=== PATIENT | male | born 1985 | race Caucasian/White ===

== ENCOUNTER 2021-08-28 16:52 | Emergency (ER) | payer MEDICARE, SELFPAY ==
--- NOTE | 2021-08-28 17:32 | ED_ITS ---
HPI - Psych General Chief Complaint: Psychiatric Symptoms Stated Complaint: CRISIS Time Seen by Provider: 08/28/21 17:31 Source: patient Mode of arrival: EMS Limitations: no limitations History of Present Illness HPI Narrative: Someone called 911 for possible suicidal ideation. Currenlty on cocaine, alcohol and marijuana. Patient states he and his are having problems. Patient is 4 years. Patient has been struggling with substances since May. Patient denies suicidal or homicidal ideation. Patient snorted cocaine today. complaint: feels depressed Onset (ago): week(s) Duration: constant Context: recent alcohol abuse and recent drug abuse Associated psychiatric symptoms: depression Associated symptoms: denies other symptoms Related Data Home Medications Medication Instructions Recorded Confirmed alprazolam 0.5 mg tablet 1 tab PO BID PRN 08/28/21 08/28/21 bupropion HCl 150 mg 24 hr tablet, 450 mg PO DAILY 08/28/21 08/28/21 extended release clonidine HCl 0.2 mg tablet 0.2 mg PO TID 08/28/21 08/28/21 oxcarbazepine 300 mg tablet 600 tab PO BEDTIME 08/28/21 08/28/21 vortioxetine 10 mg tablet 1 tab PO QAM 08/28/21 08/28/21 (Trintellix) Allergies Allergy/AdvReac Type Severity Reaction Status Date / Time No Known Allergies Allergy Unverified 08/02/20 16:17 [No Known Allergies*] Review of Systems Constitutional: Constitutional: Reports no additional constitutional complaints Eyes: Eyes: Reports no additional eye complaints ENT: Denies dizziness Cardiovascular: Cardiovascular: Reports no additional cardiovascular complaints Respiratory: Respiratory: Reports as per HPI Gastrointestinal: Gastrointestinal: Reports no additional gastrointestinal complaints Musculoskeletal: Musculoskeletal: Reports no additional musculoskeletal complaints Integumentary/Breasts: Skin/Breast: Denies rash Neurologic: Reports system reviewed and no additional complaints, except as documented, Denies dizziness and Denies Sensory deficit (Neuro) Psychiatric: Psychiatric: Denies anxiety PMFSH Past Medical History Medical History (Updated 08/28/21 @ 20:56 by Alex Agarwal MD) Depression, major, severe recurrence Social History Social History Advance Directives: No Advance Directives Information Provided: Yes Physical Exam Vital Signs: Vital Signs: Last Vital Signs Temp 97.8 F 08/28/21 17:52 Pulse 81 08/28/21 17:52 Resp 16 08/28/21 17:52 BP 156/93 H 08/28/21 17:52 Pulse Ox 95 08/28/21 17:52 Body Mass Index 27.8 Const: Other: Anxious and tearful General: healthy appearing Nutritional Appearance: average body habitus Orientation/consciousness: oriented to person and patient oriented x3 Limitations: no limitations HENMT: Head: Yes normal to inspection Ears: external ears normal General nose exam: Normal external nose present Mouth: Normal oral and palatal mucosa present and oropharynx normal Throat: Yes posterior oropharynx normal Eyes: General: appearance normal, both eyes and all related structures Neck: Other: supple Neck: Yes normal visual inspection Chest: Chest palpation & inspection: normal inspection of the chest Resp: Auscultation: clear to auscultation bilaterally Cardio: Jugular venous distension: no JVD Rate: regular rate Rhythm: regular rhythm Heart sounds: S1 normal heart sound present and S2 normal heart sound present GI: Inspection: Yes normal to inspection Palpation (GI): Soft to palpation, nontender and No hepatosplenomegaly present Auscultation: normal bowel sounds : General: Yes no CVA tenderness Back/Spine/Pelvis: Back: no CVA tenderness Skin: General skin exam: no rashes or lesions noted Neuro: General: oriented to person and patient oriented x3 Cranial nerves: Yes CN's II-XII intact bilaterally Motor exam (neuro): 5/5 motor strength present throughout Sensory Exam: No Sensory deficit (Neuro) Extrem: General: Yes normal to inspection Psych: Other: anxious and tearful Course Reevaluation(s) Reevaluation #1: seen by crisis who discussed with his and therapist. Patient mostly feeling guilty over starting drugs again. no concern over suicidal or homicidal ideation. will dc home Time: 20:54 MDM - Psych Lab Data Result diagrams: 08/28/21 18:37 08/28/21 18:37 Labs: Lab Results 08/28/21 08/28/21 08/28/21 Range/Units 18:37 18:37 18:37 WBC 15.5 H (4.8-10.8) X10*3/uL RBC 4.78 (4.60-5.80) X10*6/uL Hgb 15.6 (14.0-18.0) g/dl Hct 45.3 (42-52) % MCV 94.8 (80-98) fL MCH 32.6 (27.0-33.0) pg MCHC 34.4 (31.0-36.0) g/dl RDW 12.1 (11.0-16.0) % Plt Count 300 (160-400) X10*3/uL MPV 9.0 L (9.4-12.4) fL Immature Gran % (Auto) 0.5 H (0.0-0.4) % Neut % (Auto) 89.6 H (45-73) % Lymph % (Auto) 5.0 L (20-40) % [place] % (Auto) 4.5 (2-11) % Eos % (Auto) 0.1 (0-4) % Baso % (Auto) 0.3 (0-2) % Lymph # (Auto) 0.8 L (1.2-4.9) X10*3/uL [place] # (Auto) 0.7 (0.1-1.2) X10*3/uL Eos # (Auto) 0.0 (0.0-0.4) X10*3/uL Baso # (Auto) 0.1 (0.0-0.2) X10*3/uL Abs Immat Gran (auto) 0.07 H (0.00-0.03) X10*3/uL Absolute Neuts (auto) 13.9 H (2.0-8.3) X10*3/uL Absolute Nucleated RBC 0.000 (0.0-0.012) X10*3/uL Nucleated RBC % (auto) 0.0 (0.0-0.2) /100WBC Sodium 142 (135-145) mmol/L Potassium 4.7 (3.3-5.1) mmol/L Chloride 109 H (96-108) mmol/L Carbon Dioxide 26 (22-29) mmol/L Anion Gap 12 (12-20) BUN 15 (9-16) mg/dL Creatinine 1.16 (0.5-1.4) mg/dL Estim Creat Clear Calc 96.4 Estimated GFR > 60 Random Glucose 108 (60-115) mg/dL Calcium 9.0 (8.4-10.2) mg/dL Total Bilirubin 0.2 (0.0-1.0) mg/dL AST 43 H (5-37) U/L ALT 53 H (0-40) U/L Alkaline Phosphatase 94 (39-117) U/L Total Protein 7.3 (6.5-8.0) g/dL Albumin 4.8 (3.5-5.0) g/dL Salicylates < 5.0 L (15-30) mg/dL Urine Opiates Screen (Not Detect) Urine Fentanyl Screen (Not Detect) Acetaminophen < 1 (<30) mcg/mL Ur Barbiturates Screen (Not Detect) Ur Phencyclidine Scrn (Not Detect) Ur Amphetamines Screen (Not Detect) U Benzodiazepines Scrn (Not Detect) Urine Cocaine Screen (Not Detect) U Marijuana (THC) Screen (Not Detect) Ethyl Alcohol 22 mg/dL COVID-19 ([facility]) (Negative) COVID-19 Clin Com 08/28/21 08/28/21 Range/Units 18:42 18:42 WBC (4.8-10.8) X10*3/uL RBC (4.60-5.80) X10*6/uL Hgb (14.0-18.0) g/dl Hct (42-52) % MCV (80-98) fL MCH (27.0-33.0) pg MCHC (31.0-36.0) g/dl RDW (11.0-16.0) % Plt Count (160-400) X10*3/uL MPV (9.4-12.4) fL Immature Gran % (Auto) (0.0-0.4) % Neut % (Auto) (45-73) % Lymph % (Auto) (20-40) % [place] % (Auto) (2-11) % Eos % (Auto) (0-4) % Baso % (Auto) (0-2) % Lymph # (Auto) (1.2-4.9) X10*3/uL [place] # (Auto) (0.1-1.2) X10*3/uL Eos # (Auto) (0.0-0.4) X10*3/uL Baso # (Auto) (0.0-0.2) X10*3/uL Abs Immat Gran (auto) (0.00-0.03) X10*3/uL Absolute Neuts (auto) (2.0-8.3) X10*3/uL Absolute Nucleated RBC (0.0-0.012) X10*3/uL Nucleated RBC % (auto) (0.0-0.2) /100WBC Sodium (135-145) mmol/L Potassium (3.3-5.1) mmol/L Chloride (96-108) mmol/L Carbon Dioxide (22-29) mmol/L Anion Gap (12-20) BUN (9-16) mg/dL Creatinine (0.5-1.4) mg/dL Estim Creat Clear Calc Estimated GFR Random Glucose (60-115) mg/dL Calcium (8.4-10.2) mg/dL Total Bilirubin (0.0-1.0) mg/dL AST (5-37) U/L ALT (0-40) U/L Alkaline Phosphatase (39-117) U/L Total Protein (6.5-8.0) g/dL Albumin (3.5-5.0) g/dL Salicylates (15-30) mg/dL Urine Opiates Screen Not Detected (Not Detect) Urine Fentanyl Screen POSITIVE H (Not Detect) Acetaminophen (<30) mcg/mL Ur Barbiturates Screen Not Detected (Not Detect) Ur Phencyclidine Scrn Not Detected (Not Detect) Ur Amphetamines Screen Not Detected (Not Detect) U Benzodiazepines Scrn POSITIVE H (Not Detect) Urine Cocaine Screen POSITIVE H (Not Detect) U Marijuana (THC) Screen POSITIVE H (Not Detect) Ethyl Alcohol mg/dL COVID-19 ([facility]) Negative (Negative) COVID-19 Clin Com See Note Discharge Plan Discharge Clinical Impression: Drug abuse Patient Disposition: Home, Self-Care Instructions: Polysubstance Abuse (ED) Prescriptions: No Action oxcarbazepine 300 mg tablet 600 tab PO BEDTIME RF: 0 alprazolam 0.5 mg tablet 1 tab PO BID PRN (Reason: Anxiety) RF: 0 clonidine HCl 0.2 mg tablet 0.2 mg PO TID RF: 0 bupropion HCl 150 mg tablet extended release 24 hr 450 mg PO DAILY RF: 0 Trintellix 10 mg tablet 1 tab PO QAM RF: 0 Referrals: Yesi Martinez NP [Primary Care Provider] - 5 days
[2021-08-28 17:52] VITALS: BP 151/100; BP 156/93; PULSE 81; PULSE 90; RESP 16; TEMP 36.6; O2SAT 95; BMI 27.8
--- NOTE | 2021-08-28 18:00 | MHC.RECOVSUP ---
Recovery Support note: Patient is a 36 year old Polish speaking male who presented to [facility] via EMS. This typewriter operator automatic met with patient after he requested to talk to someone. Patient reports his last drink was four days ago and that he had several months of sobriety prior to his relapse. Patient had difficulty expressing what he was feeling and what was going on. Patient reports he has not slept well is several months. This typewriter operator automatic explained the crisis process to patient and what to expect. Patient expressed interest in meeting with a Tobacco Conditioner while he was here and this typewriter operator automatic introduced him to [facility]. Encouraged patient to reach out to staff if he needs anything. Discussed case with patient's RN.
[2021-08-28 18:44] LABS: MANUAL DIFF FLAG NO
[2021-08-28 18:46] LABS: Basophils Absolute Auto 0.1 X10*3/uL (0.0-0.2); Basophils Percent Auto 0.3 % (0-2); Eosinophils Percent Auto 0.1 % (0-4); Hematocrit 45.3 % (42-52); Hemoglobin 15.6 g/dl (14.0-18.0); Imm Gran Abs Auto 0.07 X10*3/uL (0.00-0.03); Imm Gran Pct Auto 0.5 % (0.0-0.4); Lymphocytes Absolute Auto 0.8 X10*3/uL (1.2-4.9); Mean Corpuscular HGB Conc 34.4 g/dl (31.0-36.0); Mean Corpuscular Hemoglobin 32.6 pg (27.0-33.0); Mean Corpuscular Volume 94.8 fL (80-98); Monocytes Absolute Auto 0.7 X10*3/uL (0.1-1.2); Monocytes Percent Auto 4.5 % (2-11); Neutrophils Absolute Auto 13.9 X10*3/uL (2.0-8.3); Neutrophils Percent Auto 89.6 % (45-73); Platelet Count 300 X10*3/uL (160-400); Red Blood Count 4.78 X10*6/uL (4.60-5.80); Red Cell Distribution Width 12.1 % (11.0-16.0); White Blood Count 15.5 X10*3/uL (4.8-10.8)
[2021-08-28 19:02] LABS: Ethanol 22 mg/dL
[2021-08-28 19:06] LABS: Acetaminophen LAB < 1 mcg/mL (<30); Alanine Aminotransferase 53 U/L (0-40); Albumin Level 4.8 g/dL (3.5-5.0); Alkaline Phosphatase 94 U/L (39-117); Anion Gap 12 (12-20); Aspartate Amino Transferase 43 U/L (5-37); Bilirubin Total 0.2 mg/dL (0.0-1.0); Blood Urea Nitrogen 15 mg/dL (9-16); Carbon Dioxide 26 mmol/L (22-29); Chloride 109 mmol/L (96-108); Creatinine Clr Calc Pharmacy 96.4; Estimated Glomerular Filt Rate > 60; Glucose Random 108 mg/dL (60-115); Potassium 4.7 mmol/L (3.3-5.1); Salicylate < 5.0 mg/dL (15-30); Sodium 142 mmol/L (135-145); Total Protein 7.3 g/dL (6.5-8.0)
[2021-08-28 19:09] LABS: COVID-19 Test Negative (Negative); IDNOW Serial# 08D9AD1C
[2021-08-28 19:17] LABS: Amphetamine Screen Urine Not Detected (Not Detect); Barbiturates, Urine Not Detected (Not Detect); Benzodiazepines Screen Urine POSITIVE (Not Detect); Cannabinoid Screen Urine POSITIVE (Not Detect); Cocaine Screen Urine POSITIVE (Not Detect); Fentanyl, urine POSITIVE (Not Detect); Opiate Screen Urine Not Detected (Not Detect); Phencyclidine Screen Urine Not Detected (Not Detect)
--- NOTE | 2021-08-28 21:28 | MHC.CARE ---
Pt was assessed by CARE TEAM in pod room 4. He arrived via ambulance from the community due to endorsing suicidal ideation and presenting under the influence of cocaine and alcohol. He discussed he has a contract with his therapist, and prescriber has a ?if I am unresponsive to come to the ED?. He explained he relapsed on cocaine today as he stated he last used at the age of 26 and reported he used about $40 worth of cocaine via nasal; and drank about a half of pint of vodka. Pt disclosed he is currently going through a divorce after six years of marriage and has not been able to ?handle my emotions?. He reported he has been having ?thoughts? of regret, sadness and stress. He denied experiencing suicidal or homicidal ideation, plan or intent; and denied having access to firearms. He reported his children are a safety factor. He explained being hopeful that ?something works soon? as he reported he wants to feel better for his children. According to pt, he is compliant with mental health treatment through [facility] and reported having four sessions of TMS (Transcranial Magnetic Therapy) at [facility]; and is scheduled for an IOP intake tomorrow. CARE TEAM contact pt?s . She explained if pt does not attend his therapy session, ?state police are called and he is brought to ED?. She stated ?everything was blown out of portion. It is a big misunderstanding?. She reported she was able to talk to pt and ?he sounds fine?. She denied any safety concerns and reported pt is able to return to the home. CARE TEAM contact [facility]. Zo reported police was called due possible overdose as he explained pt was observed unconsciousness through out tel-health session. No other safety concerns were reported. Pt was suggested to follow through with IOP intake and follow up with current providers. He was discharged from ED and picked up by his father.
== END 2021-08-28 21:07 | disposition home or self-care (01) ==
PROVIDERS: Emergency Provider Emergency Medicine; PCP Nurse Practitioner Family
DX: F14.10 Cocaine abuse, uncomplicated (principal); F10.10 Alcohol abuse, uncomplicated; F12.10 Cannabis abuse, uncomplicated; F33.9 Major depressive disorder, recurrent, unspecified; Z79.899 Other long term (current) drug therapy; Z20.822 Contact with and (suspected) exposure to COVID-19
CPT/HCPCS: 36415; 80053; 80143; 80179; 80307; 82077; 85025; 87635; 99283; 99284

== ENCOUNTER 2021-09-04 13:30 | Outpatient (RCR) | payer MEDICARE, SELFPAY ==
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
--- NOTE | 2021-08-22 22:33 | P.PNPS_ITS ---
TMS Daily Progress Note Daily TMS Progress Note Date of Service: 08/22/21 Week #: 1 Treatment #(12-15): 1 PHQ-9 Pre-Treatment (12-12): 20 PHQ-9 Most Recent (12-12): 20 Reviewed: TMS Mapping/Re-mapping completed Verification: I have reviewed the TMS Extractions Technologist Note and agree with the contents. The patient remains a candidate to continue TMS treatment per protocol.
--- NOTE | 2021-08-23 22:32 | HO.TMSDAILY2 ---
TMS Daily Progress Note Daily TMS Progress Note Date of Service: 08/23/21 Week #: 1 Treatment #(12-15): 2 PHQ-9 Pre-Treatment (12-12): 20 PHQ-9 Most Recent (12-12): 20 Reviewed: TMS Tech Note Reviewed (HAVING DIFFICULTY TOLERATING LOCAL SIDE EFFECTS ) Verification: I have reviewed the TMS Composing Machine Operator/Tender Note and agree with the contents. The patient remains a candidate to continue TMS treatment per protocol.
--- NOTE | 2021-08-29 21:30 | P.PNPS_ITS ---
TMS Daily Progress Note Daily TMS Progress Note Date of Service: 08/29/21 Week #: 1 Treatment #(12-15): 3 PHQ-9 Pre-Treatment (12-12): 20 PHQ-9 Most Recent (12-12): 20 Reviewed: TMS Tech Note Reviewed Verification: I have reviewed the TMS Loan Representative Note and agree with the contents. The patient remains a candidate to continue TMS treatment per [facility].
--- NOTE | 2021-08-30 21:45 | P.PNPS_ITS ---
TMS Daily Progress Note Daily TMS Progress Note Date of Service: 08/30/21 Week #: 1 Treatment #(12-15): 4 PHQ-9 Pre-Treatment (12-12): 20 PHQ-9 Most Recent (12-12): 20 Reviewed: TMS Tech Note Reviewed Verification: I have reviewed the TMS Insole Bottom Filler Note and agree with the contents. The patient remains a candidate to continue TMS treatment per pro [facility].
== END 2021-09-05 11:49 | disposition other institution (70) ==
LOC: HO.PTMS 13:30
PROVIDERS: Visit Provider Psychiatry & Neurology Psychiatry
DX: F33.2 Major depressive disorder, recurrent severe without psychotic features (principal); F43.12 Post-traumatic stress disorder, chronic
CPT/HCPCS: 90867; 90868